=== PATIENT | female | born 1970 | race Caucasian/White ===

== ENCOUNTER 2018-06-30 09:38 | Outpatient (REF) | payer BC, SELFPAY ==
[2018-07-01 10:30] LABS: Campylobacter PCR SEE COMMENTS; Salmonella PCR SEE COMMENTS; Shiga Toxin PCR SEE COMMENTS; Shigella/Enteroinvasive Ecoli SEE COMMENTS
== END 2018-06-30 09:58 ==
LOC: NCHCN 09:38
PROVIDERS: PCP Internal Medicine; Visit Provider Nurse Practitioner Family
DX: R19.7 Diarrhea, unspecified (principal)
CPT/HCPCS: 87505

== ENCOUNTER 2018-07-04 12:58 | Outpatient (REF) | payer BC, SELFPAY ==
[2018-07-04 21:24] LABS: HCT 37.5 % (36.0-46.0); Mean Corpuscular Hemoglobin 26.7 pg (27.0-33.0); Mean Corpuscular Volume 83.3 fL (80-95); Mean Platelet Volume 9.8 fL (8.0-11.0); Platelet Count 347 x1000/uL (130-400); RBC Distribution Width 14.6 % (11.7-14.6)
[2018-07-04 21:48] LABS: Anion Gap 8.6 mmol/L (3-11); BUN 12 mg/dL (7-18); CO2 30.4 mmol/L (21.0-32.0); CREATININE 0.68 mg/dL (0.55-1.02); Calcium 8.9 mg/dL (8.5-10.1); Chloride 100 mmol/L (98-107); Glucose 85 mg/dL (70-100); Sodium 139 mmol/L (136-145); TSH (W/Ref FT4) 1.38 uIU/mL (0.358-3.74)
== END 2018-07-04 13:18 ==
LOC: LBN 12:58
PROVIDERS: PCP Internal Medicine; Visit Provider Nurse Practitioner Family
DX: L67.9 Hair color and hair shaft abnormality, unspecified (principal); R19.7 Diarrhea, unspecified
CPT/HCPCS: 80048; 85027; 84443

== ENCOUNTER 2018-07-08 13:24 | Outpatient (REF) | payer BC, SELFPAY ==
[2018-07-08 14:31] LABS: Potassium 3.9 mmol/L (3.5-5.1)
== END 2018-07-08 13:44 ==
LOC: NCHCN 13:24
PROVIDERS: PCP Internal Medicine; Visit Provider Nurse Practitioner Family
DX: E87.6 Hypokalemia (principal); M54.5 Low back pain
CPT/HCPCS: 84132; 87086

== ENCOUNTER 2019-02-15 11:20 | Outpatient (CLI) | payer BC, SELFPAY ==
[2019-02-15 12:37] LABS: HCT 34.9 % (36.0-46.0); HGB 11.1 g/dL (12.0-15.5); Mean Corp. HGB Concentration 31.8 g/dL (32.0-36.0); Mean Corpuscular Volume 88.1 fL (80-95); Mean Platelet Volume 8.9 fL (8.0-11.0); Platelet Count 465 x1000/uL (130-400); RBC 3.96 m/cumm (4.00-5.20); RBC Distribution Width 15.4 % (11.7-14.6); White Blood Cell Count 5.95 k/cumm (4.4-10.8)
[2019-02-15 13:05] LABS: TSH (W/Ref FT4) 1.29 uIU/mL (0.358-3.74)
== END 2019-02-15 11:40 ==
PROVIDERS: PCP Internal Medicine; Visit Provider Nurse Practitioner Women's Health
DX: N93.9 Abnormal uterine and vaginal bleeding, unspecified (principal)
CPT/HCPCS: 36415; 85027; 84443

== ENCOUNTER 2019-02-15 12:14 | Outpatient (REF) | payer BC, SELFPAY ==
--- NOTE | 2019-02-15 11:00 | ENDOMET_PTH ---
PATIENT: Margoth Shin LOC: [facility] U#:[id number] AGE/SX: 48/F ROOM: RE02/15/[address]: Monae Conner NP : 1970 BED: DIS: 02/15/2019 SPEC #: [id number] RECD: 02/15/19 12:50 STATUS: CHIKIS REQ #: [id number] ENEIDA: 02/15/19 11:[address]: Monae Conner NP DEPT: Surgical Specimen RECD BY: Saray Muller ENTERED: 02/15/19 12:51 SP TYPE: Endomet OTHR DR: Mauricio Grimes Tissues: 1 - ENDOMETRIUM BX/ANNABELLA Procedures: GROSS AND MICRO LEVEL 4 Comments: [id number]
== END 2019-02-15 12:34 ==
LOC: LBN 12:14
PROVIDERS: PCP Internal Medicine; Visit Provider Nurse Practitioner Women's Health
DX: N85.01 Benign endometrial hyperplasia (principal); N93.8 Other specified abnormal uterine and vaginal bleeding; N95.8 Other specified menopausal and perimenopausal disorders
CPT/HCPCS: 88305

== ENCOUNTER 2019-02-16 01:12 | Outpatient (CLI) | payer BC, SELFPAY ==
--- NOTE | 2019-02-16 08:04 | DI.US_ITS ---
SYMPTOM/DIAGNOSIS: AUB, N93.9 ABNORMAL UTERINE AND VAGINAL BLEEDING N85.2 HYPERTROPHY OF UTERUS PELVIC ULTRASOUND: 02/16 Pelvic ultrasound was performed transabdominally and transvaginally. Please see the accompanying data sheet for measurements of the pelvic structures. The uterus is unremarkable in appearance except for some small Nabothian cysts. Endometrial stripe is about 8 mm in thickness and appears fairly homogeneous. Right ovary has a normal follicular appearance. The left ovary contains a cystic mass with a couple septations. Question of nodular or wall thickening is raised in one quadrant of the cyst. No gross increased blood flow is seen. No free fluid identified in the cul de sac. Limited scanning of the kidneys is unremarkable. CONCLUSION: Indeterminate left ovarian predominantly cystic mass. Follow up ultrasound recommended in 4-6 weeks and if the findings do not resolve additional evaluation with pelvic MRI or biopsy would be recommended.
== END 2019-02-16 01:32 ==
PROVIDERS: PCP Internal Medicine; Visit Provider Nurse Practitioner Women's Health
DX: N85.2 Hypertrophy of uterus (principal); N93.9 Abnormal uterine and vaginal bleeding, unspecified; N83.292 Other ovarian cyst, left side
CPT/HCPCS: 76830; 76856

== ENCOUNTER 2019-02-22 09:28 | Outpatient (CLI) | payer BC, SELFPAY ==
[2019-02-22 10:31] LABS: Abs Immature Grans 0.01 k/cumm (0.0-0.09); Absolute Basophil Count 0.06 k/cumm (0.0-0.2); Absolute Eosinophil Count 0.08 k/cumm (0.0-0.7); Absolute Monocyte Count 0.47 k/cumm (0.11-0.7); Absolute Neutrophil Count 4.12 k/cumm (1.2-6.7); Eosinophils % 1.3; HCT 34.3 % (36.0-46.0); HGB 11.1 g/dL (12.0-15.5); Immature Grans % 0.2; Mean Corp. HGB Concentration 32.4 g/dL (32.0-36.0); Mean Corpuscular Hemoglobin 28.8 pg (27.0-33.0); Mean Corpuscular Volume 88.9 fL (80-95); Mean Platelet Volume 8.8 fL (8.0-11.0); Monocytes % 7.5; Platelet Count 348 x1000/uL (130-400); RBC 3.86 m/cumm (4.00-5.20); RBC Distribution Width 15.7 % (11.7-14.6); White Blood Cell Count 6.24 k/cumm (4.4-10.8)
== END 2019-02-22 09:48 ==
PROVIDERS: PCP Internal Medicine; Visit Provider Nurse Practitioner Women's Health
DX: D64.9 Anemia, unspecified (principal)
CPT/HCPCS: 36415; 85025

== ENCOUNTER 2019-03-27 00:43 | Outpatient (CLI) | payer BC, SELFPAY ==
--- NOTE | 2019-03-27 07:55 | DI.US_ITS ---
SYMPTOM/DIAGNOSIS: LT OVARIAN MASS, N83.202 PELVIC ULTRASOUND: Transabdominal and transvaginal exams were performed. Comparison is made with 02/16/19. The uterus measures 9 by 5.1 by 7 cm. The endometrial stripe measures 6 mm. in thickness. There is a question of a small posterior myometrial fibroid. The previously noted cystic septated lesion in the left ovary is no longer present on the current exam. Small follicles are noted on both ovaries. No free fluid or hydronephrosis is seen. IMPRESSION: Interval resolution of septated cyst. No significant new abnormalities are seen.
== END 2019-03-27 01:03 ==
PROVIDERS: PCP Internal Medicine; Visit Provider Nurse Practitioner Women's Health
DX: N83.292 Other ovarian cyst, left side (principal)
CPT/HCPCS: 76830; 76856

== ENCOUNTER 2019-04-27 08:40 | Outpatient (CLI) | payer BC, SELFPAY ==
[2019-04-27 09:38] LABS: HCT 41.8 % (36.0-46.0); HGB 13.9 g/dL (12.0-15.5); Mean Corp. HGB Concentration 33.3 g/dL (32.0-36.0); Mean Corpuscular Hemoglobin 28.6 pg (27.0-33.0); Mean Platelet Volume 8.9 fL (8.0-11.0); Platelet Count 351 x1000/uL (130-400); RBC 4.86 m/cumm (4.00-5.20); RBC Distribution Width 13.9 % (11.7-14.6); White Blood Cell Count 5.95 k/cumm (4.4-10.8)
== END 2019-04-27 09:00 ==
PROVIDERS: PCP Internal Medicine; Visit Provider Obstetrics & Gynecology Gynecology
DX: N92.6 Irregular menstruation, unspecified (principal); Z01.812 Encounter for preprocedural laboratory examination
CPT/HCPCS: 36415; 85027; 86850; 86900; 86901

== ENCOUNTER 2019-05-04 10:55 | Day surgery (SDC) | payer BC, SELFPAY ==
[2019-05-04 11:15] VITALS: BP 129/85; PULSE 78; RESP 16; TEMP 36.8; O2SAT 99
[2019-05-04] MEDS: Lactated Ringers 1,000 ML 125 ML IV (11:40)
[2019-05-04] MEDS: Bupivacaine 0.25% Pres-Free 30 ML VIAL (13:03)
[2019-05-04 13:34] VITALS: BP 119/67; PULSE 73; RESP 14; TEMP 36.4; O2SAT 100
[2019-05-04 13:39] VITALS: BP 123/77; PULSE 71; RESP 14; TEMP 36.4; O2SAT 100
[2019-05-04 13:44] VITALS: BP 129/81; PULSE 70; RESP 14; TEMP 36.4; O2SAT 100
--- NOTE | 2019-05-04 13:47 | ROE_ITS ---
Date of service: 05/04/19 Time of Service: 13:47 Operative Note Operative Note DATE OF PROCEDURE: 05/04/19 PRE-OP DIAGNOSIS: Abnormal uterine bleeding POST-OP DIAGNOSIS: same PROCEDURE: Hydrothermal endometrial ablation SURGEON: Marie Lorenzana ANESTHESIA: GETA (Laryngeal mask anesthesia) ESTIMATED BLOOD LOSS: 0 PATHOLOGY: none sent COMPLICATIONS: None Patient was transported to: same day Patient's condition: stable Indications: 48-year-old multiparous female with heavy bleeding beginning in January 2019 responsive to medical therapy. Patient is continued with irregular b leeding while taking continuous active OCPs. She declined definitive treatment in the form of an endometrial ablation Findings: Uterus sounded to 8 cm. Uterine vides thickened no polyps or intracavitary filling defects noted Procedure Description: Patient was taken to the operating room where she is p laced in the dorsal supine position and general laryngeal anesthesia provided. She was then placed in the dorsolithotomy position in yellowfin stirrups prepped and draped in the usual sterile fashion. A surgical timeout was performed. A bivalve speculum was placed in the vagina and the anterior lip of the cervix was infiltrated with quarter percent Marcaine and grasped with a single-tooth tenac ulum. Paracervical block was then performed using 5 cc of quarter percent Marcaine without epinephrine at the 4 and 8:00 interfaces. Uterus was then sounded to 8 cm and the cervix sequentially dilated to a maximum of 17 Mishra. The hysteroscope with the hydrothermal ablation cannula was introduced under direct visualization into the uterine cavity with normal saline as a distention medium. Cavity assessment was performed and the ablation device was positioned two thirds of the way into the uterine cavity with visualization of the uterine fundus. Once diagnostic hysteroscopy was completed the temperature of the circulating fluid was heated to 90 ?C and for 10 minutes the endometrial cavity was treated. Care was taken to assure that the hydrothermal device was not touching the vaginal vides. No leakage from the cervical loss was observed. At the completion of the procedure the fluid circulating within the cavity was returned to room temperature and diagnostic hysteroscopy showed a complete ablation of the uterine fundus and to the lower uterine segment. 2 spots approximately 1 cm each were noted to be untreated at the uterine cornua bilaterally. Instruments were removed from the patient's vagina at the tenaculum site was hemostatic she is placed in the dorsal supine position awakened extubated and transported to recovery area in stable condition all sponge lap needle counts are correct x2.
[2019-05-04 14:00] VITALS: BP 133/85; PULSE 75; RESP 17; TEMP 36.7; O2SAT 100
[2019-05-04 14:44] VITALS: BP 143/83; PULSE 67; RESP 16; TEMP 36.4; O2SAT 100
[2019-05-04] MEDS: oxyCODONE 5 mg/Acetaminophen 325 mg TAB PO (14:50)
== END 2019-05-04 16:01 | disposition home or self-care (01) ==
PROVIDERS: PCP Internal Medicine; Visit Provider Obstetrics & Gynecology Gynecology
PROC: (CPT 58353; principal; 2019-05-04 13:00)
DX: N93.8 Other specified abnormal uterine and vaginal bleeding (principal)
CPT/HCPCS: 58563; J1100; J1885; J2405

== ENCOUNTER 2022-02-13 19:11 | Emergency (ER) | payer BC, SELFPAY ==
[2022-02-13 19:28] VITALS: BP 148/91; PULSE 98; RESP 14; TEMP 37.3; O2SAT 98
--- NOTE | 2022-02-13 20:03 | ED.GENADUL_ITS ---
Discharge Plan Disposition Patient Disposition: HOME Condition: Stable Discharge Details Clinical Impression: Hemorrhoids, Hemorrhoids, thrombosed Primary Care Provider: Mauricio Grimes ED Provider: Deisy Johns Home Meds and New Rx's Prescriptions: New oxycodone 5 mg tablet 5 mg PO Q4H PRN (Reason: pain) Qty: 10 0RF hydrocortisone [Anusol-HC] 2.5 % cream with perineal applicator 1 applic ID QD-BID PRN (Reason: hemorrhoids) Qty: 30 0RF No Action ibuprofen [Advil] 200 mg tablet 200 mg PO Q6H PRN docusate sodium [Colace] 100 mg capsule 100 mg PO DAILY dibucaine 1 % Ointment 1 applic ID DIRECTED PRN Advil Dual Action 125-250 mg Tablet 1 tab PO DIRECTED Discharge Instructions Instructions: Oxycodone, Rapid Release (By mouth), Dibucaine (On the skin), H ydrocortisone (Into the rectum), Hemorrhoids (ED), Thrombosed Hemorrhoid (ED) Additional Instructions: You have a number of large hemorrhoids that appear to be external. The most painful, and largest, is thrombosed. Surgical physician feels this will improve over the next 24-48hours. Please continue with your Tucks pad, ice, sitz baths. Please continue with increased water intake, diet to keep stool soft. You may continue with Tylenol and/or Ibuprofen as needed for discofort. You may augment this with the oxycodone as prescribed. Please do not drive while taking this medication and only take as prescribed. This can cause constipation, please take collace or other stool soften while on this. Should you develop any signs of constipation beginning take milk of magnesia or magnesium citrate (these are available over the counter). You may use the Dibucaine topically for pain 3-4 times per day. Please rotate this with the Anusol which you can apply 2-4 times daily. I would like for you to see general surgery as soon as possible, I have asked our care management team to assist with prompt follow up. If you develop fevers/chills, increased pain or other new/worsening symptoms please seek care urgently once again. Referrals: Liliana Kruse MD [ [facility] STAFF PHYSICIAN] - Mauricio Grimes MD [Primary Care Provider] - Discharge Data Discharge Date/Time-TO BE ENTERED AT DEPARTURE: 02/13/22 22:12 Medical Decision Making Patient is a pleasant 51 year old female, accompanied by , with c/c of hemorrhoids. She reports that she has had long history of hemorrhoids which she typcially is able to control with diet. Has discussed surgical excision but states that this was several years ago. She reports that this past week has been very off from her typical schedule/diett and she developed significant hemorrhoids that are nott responding tto her typical managementt of ice, soaks, hydrocortisone. She is having difficulty walking, sitting, sleeping. Denies fevers/chills. Has had normal stools without constipation. No vaginal discharge or dysurea. On exam, patient appears very uncomforttable. She is laying on her side off of her buttock. Abdomen is benign. She has large cluster of what appear to be external hemorrhoids. However, given the pain level and severity, it is difficult to identify the starting point for many of these. All together, the cluster is about the size of a tennis ball. She has one that is clearly thrombosed about the size of a golf ball with the surrounding ones appearing pink and much more soft/nontender. Exam is limited secondary to pain. No involvement of the attached skin. Concerned with thrombosed hemorrhoids, will reach out to surgery. The size and others surrounding the single thrombosed hemorrhoid has me concerned to open this, will seek their guidance first. Consulted with Dr. Rodriguez. She recommended that we could use ice or anusol suppositories. Advised that it should start to reabsorb in the next 24-48hrs. We discussed Nitro suppositories but advised that with the thrombosis less likely to be successful. Advised it should abosrb after the acute period. Discussed this with the patient. She is clearly so uncomfortable that I did offer oral narcotics. We discussed that this could increase her risk of cons tipation which would further precipitate her hemorrhoids. Advised that if we do so, we need to start a concomitant stool softener which she does not typically take. She has used Colace in the past with good results. Encouraged hydration. Encouraged that she continue with her ice and sitz baths. Encouraged that she use non-narcotic options first such as tylenol and/or ibuprofen as she has been doing. Will refill her hydrocortisone and also provide numbing cream to help with acute period of discomfort. I have asked our care management team to ensure f/u with general surgery as soon as possible, hopefully Wednesday, for consultation and intervention if needed. Return precautions were discussed. All of her quesitons and concerns were addressed, she is in agreement with this plan. HPI General Date/Time Provider Initiated Documentation: 02/13/22 20:02 . Limitations to Documentation: no limitations . Information obtained by: patient, family () and RN notes reviewed . History of Present Illness 51 year old F presents to the emergency department with the chief complaint of hemorrhoids, described as severe and similar to prior episodes, with intensity rated at 10. Quality is described as burning, and is localized to the buttocks. Patient reports no radiation. Patient started experiencing this day(s) and it has been constant. Immobilization improves symptom(s), Movement worsens symptoms . Patient notes no other symptoms.. Patient did receive the following treatments prior to arrival, other (several topical options) Related Data Home Medications Medication Instructions Recorded Confirmed hydrocortisone 2.5 % topical cream 1 applic ID QD-BID PRN hemorrhoids 02/13/22 02/16/22 with perineal applicator #30 grams (Anusol-HC) oxycodone 5 mg tablet 5 mg PO Q4H PRN pain #10 tabs 02/13/22 02/16/22 dibucaine 1 % rectal ointment 1 applic ID DIRECTED PRN 02/16/22 02/16/22 docusate sodium 100 mg capsule 100 mg PO DAILY 02/16/22 02/16/22 (Colace) ibuprofen 125 mg-acetaminophen 250 1 tab PO DIRECTED 02/16/22 02/16/22 mg tablet (Advil Dual Action) ibuprofen 200 mg tablet (Advil) 200 mg PO Q6H PRN 02/16/22 02/16/22 Previous Rx's Medication Instructions Recorded hydrocortisone 2.5 % topical cream 1 applic ID QD-BID PRN hemorrhoids 02/13/22 with perineal applicator #30 grams (Anusol-HC) oxycodone 5 mg tablet 5 mg PO Q4H PRN pain #10 tabs 02/13/22 Allergies Allergy/AdvReac Type Severity Reaction Status Date / Time carisoprodol [From Soma] Allergy Intermediate Hives Unverified 02/16/22 14:31 nickel Allergy HIVES Verified 02/16/22 14:31 General Stated Complaint: GenMedical MATILDE: 3 Review of Systems Constitutional Constitutional: Reports as per HPI, Denies chills and Denies fever(s) Gastrointestinal Gastrointestinal: Reports as per HPI Musculoskeletal Musculoskeletal: Reports as per HPI and Denies back pain Integumentary/Breasts Skin/Breast: Reports as per HPI Neurologic Neurologic: Reports as per HPI PFSH All Active Problems Hemorrhoids (Acute) Hemorrhoids, thrombosed (Acute) S/P endometrial ablation (Acute ~04/2019) Abnormal uterine bleeding (AUB) (Acute) Onset 01/2019. Initial treatment with tranexamic acid and norethindrone plus /minus effective. Normal endometrial biopsy normal pelvic ultrasound. 05/04/19 Endometrial ablation. Family history of breast cancer (Acute 06/10/17) sister with premenopausal breast CA. Unknown BRCA testing. Medical History Prolapsed hemorrhoids occurs with defecation. occassional bleeding. Family History Father Heart disease Heart fibrillation, hypertension, diabetes. Sister No problems noted. Social History Smoking/Tobacco Use Status: Never Smoking risk assessment performed?: Yes Alcohol Intake: current Alcohol Intake frequency: a few times a month Alcohol type: wine Drug use: Never Substance use type: does not use Current gender identity: female Do you feel safe at home: Yes Do you feel safe in your relationship?: Yes Female Reproductive History Menstrual control method: none History History 3 Para 2 Hx # Term Pregnancies Multiple births Hx # Pregnancies Ectopic pregnancies AB induced Hx Number of Living Children AB spontaneous Exam Const General: cooperative, healthy appearing, uncomfortable, no acute distress and well developed Nutritional Appearance: average body habitus and well nourished Orientation: alert and awake HENMT Head: normal to inspection Mouth: moist mucous membranes Resp Effort & Inspection: normal respiratory effort, able to speak in complete sentences and no respiratory distress Cardio Rate: regular rate Rhythm: regular rhythm GI Inspection: normal to inspection Palpation: soft, no guarding, not rigid and nontender Percussion: normal to percussion Auscultation: normal bowel sounds Rectal Exam - female: hemorrhoids and tenderness (maximal over thrombosed hemorrhoid) Back/Spine/Pelvis Back: no CVA tenderness Skin General skin exam: other (hemorrhoids, one is thrombosed) Trauma: no lacerations or abrasions Neuro General: patient alert and patient awake Cognition: normal cognition Speech: speech normal Gait: normal gait Psych Appearance: grossly normal and well kempt Mental Status: mental status grossly normal Speech and Movement: speech and movement normal Course Vital Signs Vital signs: Vital Signs Temperature 37.3 C 02/13/22 19:28 Pulse 98 H 02/13/22 19:28 Respiratory Rate 14 02/13/22 19:28 Blood Pressure 148/91 H 02/13/22 19:28 Pulse Oximetry 98 02/13/22 19:28 Temperature 37.3 C 02/13/22 19:28 Temperature Source Temporal Artery Scan 02/13/22 19:28 Pulse 98 H 02/13/22 19:28 Respiratory Rate 14 02/13/22 19:28 Respiratory Effort Non-Labored 02/13/22 19:33 Respiratory Depth Normal 02/13/22 19:33 Respiratory Pattern Normal 02/13/22 19:33 Blood Pressure 148/91 H 02/13/22 19:28 Blood Pressure Position Supine 02/13/22 19:28 Pulse Oximetry 98 02/13/22 19:28 Oxygen Delivery Method Room Air 02/13/22 19:28 Oxygen Flow Rate 0 02/13/22 19:28 Pain Level 8 02/13/22 19:28
[2022-02-13] MEDS: oxyCODONE 5 MG TAB PO (21:35)
[2022-02-13] MEDS: Docusate Sodium 100 MG CAP PO (21:35)
[2022-02-13] MEDS: Hydrocortisone 25 MG SUPP 50 MG PR (22:10)
--- NOTE | 2022-02-16 09:37 | PDOC.ERCMACT ---
- If Service Date Differs Date of service: 02/16/22 Time of Service: 09:37 Care Management Activity Note Margoth is seen in the ED on 02/13/22 for thrombosed hemorrhoids. TANIA receives a call from Margoth over the weekend who advises that the pain is excruciating and despite following instructions received in the ED, the pain has not improved. TANIA contacts the [facility] office Wednesday and obtains an urgent appointment for Margoth with OCTAVIO [place], at 11:00 am (02/16).
== END 2022-02-13 22:12 | disposition home or self-care (01) ==
PROVIDERS: Emergency Provider Physician Assistant; PCP Internal Medicine
DX: K64.5 Perianal venous thrombosis (principal)
CPT/HCPCS: 99283; 99284

== ENCOUNTER 2022-02-16 13:08 | Outpatient (CLI) | payer BC, SELFPAY ==
[2022-02-16 14:31] LABS: Source Nasal/Nares
[2022-02-16 22:41] LABS: COVID-19 PCR Negative (Negative)
== END 2022-02-16 13:09 | disposition home or self-care (01) ==
LOC: LBO 13:10
PROVIDERS: PCP Internal Medicine; Visit Provider Surgery
DX: Z20.822 Contact with and (suspected) exposure to COVID-19 (principal); Z01.818 Encounter for other preprocedural examination
CPT/HCPCS: 87635

== ENCOUNTER 2022-02-17 06:09 | Day surgery (SDC) | payer BC, SELFPAY ==
--- NOTE | 2022-02-16 14:58 | W.PM.DSUDISC ---
Discharge Plan Disposition Patient Disposition: HOME Condition: Good Discharge Details Reason For Visit: Thrombosed hemorrhoids x3 Attending Provider: Geena Shipley Primary Care Provider: Mauricio Grimes Home Meds and New Rx's Prescriptions: New tramadol 50 mg tablet 50 mg PO Q4H PRN (Reason: pain (scale score 7-10)) Qty: 14 0RF dibucaine 1 % ointment 1 applic HI QID PRNQty: 56 6RF cyclobenzaprine 5 mg tablet 5 mg PO TID PRNQty: 30 6RF Continued ibuprofen [Advil] 200 mg tablet 200 mg PO Q6H PRN docusate sodium [Colace] 100 mg capsule 100 mg PO DAILY hydrocortisone [Anusol-HC] 2.5 % cream with perineal applicator 1 applic HI QD-BID PRN (Reason: hemorrhoids) Qty: 30 0RF dibucaine 1 % Ointment 1 applic HI DIRECTED PRN Advil Dual Action 125-250 mg Tablet 1 tab PO DIRECTED acetaminophen 500 mg Tablet 1,000 mg PO Q6H PRN Discontinued oxycodone 5 mg tablet 5 mg PO Q4H PRN (Reason: pain) Qty: 10 0RF Discharge Instructions Additional Instructions: Home Care Instructions after Rectal Surgery Pain control:? Ibuprofen 600mg 6hrs (take w/ food. Do not take on an empty stomach) and Tylenol 1000mg by mouth (ibuprofen 400-600mg) every 8 hours.? Do not take if you have ulcers or sensitivity to aspirin.? Do not take Tylenol if you have hepatitis or liver failure. Alternate the Tylenol and ibuprofen.? Take pain meds continuously for the first 72hrs.? After 72hrs, you can take as needed if you are having pain.? Use the tramadol for pain >7. It takes oral pain meds an hour to take affect. You also have the topical dibucaine for pain as well. How to prevent constipation: The first bowel movement after surgery will be painful. Do not let yourself get constipated. Stay on a stool softener for the first two weeks after surgery. ?It is recommended that you use a fiber supplement (Metamucil, Citrucel) daily (1 tablespoon in 8 oz of water). If you do not have a bowel movement daily, use Milk of Magnesia or Miralax. You may have bleeding or drainage after rectal surgery; especially when you move your bowels. Use a sanitary napkin to collect the discharge. If you are passing large clots or having to change the pad more than every 4 hours, call the clinic or go to the ER. You may experience spasms in the rectal muscles. This is normal after surgery and last for about two weeks. They can become more intense with bowel movements. The best remedy is to soak in a bathtub of plain warm water- no Epsom salts, essential oil or soap.? It takes about 10 minutes for the the spasm to stop.? You may want to do this after BM as well. You can use also use the cyclobezaprine for spasms. It is ok to shower. Avoid soap on the surgical area. Use a pillow to sit on. Follow a mild bland diet. Avoid alcohol, spicy food, citrus, and tomatoes. Avoid strenuous activity (running, jogging, and power walking, swimming, weight lifting) for 4-6 weeks. No lifting over 20 pounds for 2 weeks. F/u in 2 wks time Stand Alone Forms: Anesthesia Discharge Inst., Xavier Saleh (DSU) Activity:: see above Diet:: As Tolerated Discharge Orders Discharge Orders: Discharge Order (Routine); Ordered 02/16/22 Ordered By: Geena Shipley
--- NOTE | 2022-02-16 15:08 | ROE_ITS ---
Date of service: 02/18/22 Time of Service: 08:30 Operative Note Operative Note DATE OF PROCEDURE: 02/17/22 PRE-OP DIAGNOSIS: Thrombosed hemorrhoids x3 columns mixed I/E POST-OP DIAGNOSIS: same (thrombosised and necrotic ) PROCEDURE: I/E open hemorrhoidectomy SURGEON: Geena Shipley ANESTHESIA TYPE: Local By Surgeon and General LMA/ETT Refer to Anesthesia Record ESTIMATED BLOOD LOSS: 10 PATHOLOGY: none sent COMPLICATIONS: None Patient was transported to: same day Patient's condition: stable Procedure Description: Pt is here today for excision of throbosed/necrotic I/E hemorrhoids. Informed consent is obtained explaining risks and benefits of the procedure, including but not limited to: bleeding, infection, penumonia.,blood clots,damage to sphincters resulting in stenosis or loss of control, anesthesia, recurrence, and other unforetold complications. pt is brought to the operative suite. Anestheis is administered per the dept of anethesia. She is than placed in the prone possition w/ all bony surfaces padded. The anal/rectal region is prepped and drapped in the usual sterile fashion using a Betadine scrub solution. Timeout and fire safety Are performed. All 3 hemorrhoid clusters are thrombosed necrotic and inflamed. They are not grossly infected. She did receive preop Flagyl IV. Procedure: A Verdugo anal retractor was inserted to aid in visualization of the hemorrhoid to be operated upon. the hemorrhoid was grasped at the mucocuteneous junction with an Allis forceps and retracted. A stay suture of 4- 0 Prolene was placed distal to the end of the incision. The skin was incised at the base of the hemorrhoid with a scissors as a V-shape incision. The incision was extended into the mucosa either side of the hemorrhoid, raising it off the muscles of the internal sphincter. The dissection is continued just beyond the dentate line. All clot was removed prior to closing the defect. The Defect was then closed with 4-0 Vicryl in a running fashion. This was repeated for all 3 columns. The rectum was irrigated. There is no bleeding noted. Dibucaine impregnated Gelfoam was inserted into the rectum and sterile dressing is applied. Patient tolerated procedure well without complication and transferred to recovery room in stable condition.
[2022-02-17] VITALS (7 sets, daily range): BP systolic 108–150; BP diastolic 79–108; PULSE 77–97; RESP 11–20; TEMP 36–36.5; O2SAT 96–100; BMI 28.8
[2022-02-17] MEDS: Gabapentin 300 MG CAP 600 MG PO (06:34)
[2022-02-17] MEDS: Acetaminophen 500 MG TAB 1000 MG PO (06:35)
[2022-02-17] MEDS: metroNIDAZOLE 500 MG/100 ML BAG 100 MG IVPB (06:45)
[2022-02-17] MEDS: Lactated Ringers 1,000 ML 80 ML IV (06:50)
[2022-02-17] MEDS: Normal Saline Flush 10 ML SYR IV (06:51)
--- NOTE | 2022-02-17 07:10 | ANES.PREOP_ITS ---
General Info Date of Service Date Performed: 02/17/22 Height: 5 ft 4 in Weight: 76.2 kg Body Mass Index (BMI): 28.8 Surgical Procedure: Operation Date: 02/17/22 07:40 Proposed Procedure Side Surgeon p Exam Under Anesthesia Geena Shipley DO s Hemorrhoidectomy Geena Shipley DO Meds Allergies and Home Medications Allergies Allergy/AdvReac Type Severity Reaction Status Date / Time carisoprodol [From Soma] Allergy Intermediate Hives Unverified 02/17/22 06:56 nickel Allergy HIVES Verified 02/17/22 06:56 Home Medication Medication Instructions Recorded hydrocortisone 2.5 % topical cream 1 applic SD QD-BID PRN hemorrhoids 02/13/22 with perineal applicator #30 grams (Anusol-HC) oxycodone 5 mg tablet 5 mg PO Q4H PRN pain #10 tabs 02/13/22 dibucaine 1 % rectal ointment 1 applic SD DIRECTED PRN 02/16/22 docusate sodium 100 mg capsule 100 mg PO DAILY 02/16/22 (Colace) ibuprofen 125 mg-acetaminophen 250 1 tab PO DIRECTED 02/16/22 mg tablet (Advil Dual Action) ibuprofen 200 mg tablet (Advil) 200 mg PO Q6H PRN 02/16/22 acetaminophen 500 mg tablet 1,000 mg PO Q6H PRN 02/17/22 Current Visit Medications: Current Medications Generic Name Dose Route Start Last Admin Trade Name Freq PRN Reason Stop Dose Admin Acetaminophen 1,000 mg 02/17/22 06:00 02/17/22 06:35 Acetaminophen 500 Mg Tab PO 03/18/22 23:59 1,000 mg PREOP JEREMY Administration Dibucaine 0 gm 02/17/22 06:00 Dibucaine 1% 28 Gm Tube SD DIRECTED JEREMY Gabapentin 600 mg 02/17/22 06:00 02/17/22 06:34 Gabapentin 300 Mg Cap PO 03/18/22 23:59 600 mg PREOP JEREMY Administration Ringer's Solution 1,000 mls @ 80 mls/hr 02/17/22 06:00 02/17/22 06:50 IV 03/18/22 23:59 80 mls/hr INFUSION JEREMY Administration Metronidazole 500 mg in 100 mls @ 100 mls/hr 02/17/22 06:00 Flagyl IVPB 02/17/22 23:59 PREOP JEREMY Ondansetron HCl 4 mg/ Sodium 52 mls @ 200 mls/hr 02/16/22 14:58 Chloride IVPB Q6H PRN PRN IV Miscellaneous Supplies 1 each 02/17/22 06:00 Iv Access IV 03/18/22 23:59 DIRECTED JEREMY Morphine Sulfate 2 mg 02/16/22 14:58 Morphine 4 Mg/Ml Syr IVP Q1H PRN PRN Sodium Chloride 0 ml 02/17/22 06:00 02/17/22 06:51 Normal Saline Flush 10 Ml Syr IV 03/18/22 23:59 10 ml PRN PRN Administration Sodium Chloride 0 ml 02/17/22 06:00 Normal Saline 10 Ml Vial IJ 03/18/22 23:59 DIRECTED PRN Sterile Water 0 ml 02/17/22 06:00 Water,Injection,Sterile 10 Ml Vial IJ 03/18/22 23:59 DIRECTED PRN Tramadol HCl 50 mg 02/16/22 14:58 Tramadol 50 Mg Tab PO Q6H PRN PRN Pain PFSH Active Problems Active Problems: Problem Status Onset Code Hemorrhoids K64.9 Hemorrhoids, thrombosed K64.5 S/P endometrial ablation ~04/2019 Z98.890 Abnormal uterine bleeding (AUB) N93.9 Family history of breast cancer 06/10/17 Z80.3 Medical History Medical History Prolapsed hemorrhoids occurs with defecation. occassional bleeding. Tobacco Smoking/Tobacco Use Status: Never Alcohol Alcohol Intake: current Alcohol intake frequency: a few times a month Alcohol type: wine Substance Use Substance use: Never Substance use type: does not use Prental History History 3 Para 2 Hx # Term Pregnancies Multiple births Hx # Pregnancies Ectopic pregnancies AB induced Hx Number of Living Children AB spontaneous Vital Signs and Lab Results Vital Signs Most Recent Vital Signs in EMR: Most Recent Vital Signs Temp Pulse Resp BP Pulse Ox 36.5 C 82 18 132/108 H 98 02/17/22 06:18 02/17/22 06:18 02/17/22 06:18 02/17/22 06:18 02/17/22 06:18 Point of Care Results Point of Care Results: POC- Test(urine) Negative 02/17/22 06:57 Lab Results Blood Type / Crossmatch: No Data to Display Complete Blood Count: No Data to Display Complete Metabolic Panel: No Data to Display Liver Function Panel: No Data to Display Coagulation Panel: No Data to Display Cardiac Panel: No Data to Display Arterial Blood Gas: 2 No Data to Display Venous Blood Gas: No Data to Display Pancreas Panel: No Data to Display Thyroid Panel: No Data to Display Infectious Disease: Coronavirus (COVID-19)(PCR) Negative (Negative) 02/16/22 12:05 Coronavirus 2019 Source Nasal/Nares 02/16/22 12:05 Blood Cultures: No Data to Display Toxicology Panel: No Data to Display Panel: No Data to Display Anesthesia Assessment and Plan Anesthesia History Personal History: No History of Anesthesia Complications Family History: No Family History of Anesthesia Complications Exercise Tolerance Exercise Tolerance: Metabolic Equivalents>4 Pertinent Negatives Pertinent Negatives: No Symptoms of GERD, No Major Cardiovascular Symptoms or Complaints and No Major Pulmonary Symptoms or Complaints Cardiac & Pulmonary Exam Cardiac Exam: Normal S1/S2 Heart Sounds Pulmonary Exam: Clear Bilateral Breath Sounds Implantable Cardiac Device Does patient have a Pacemaker or an ICD?: No Airway Exam Known Difficult Airway: No Mallampati Class: 1 Mouth Opening: Normal (> 3cm) Thyromental Distance: Greater than 3 cm Neck Range of Motion: Full ROM Neck Circumference: Normal Teeth Condition: Normal Dentition ASA Classification ASA Score: ASA 2 Emergency Case?: No NPO Status NPO Status: NPO Clears >2 hours, Solids >8 hours Status Status: Negative HCG Anesthesia Plan Resuscitation Status: Full Code Anesthesia Technique: General Anesthesia Airway Planned: Endotracheal Tube Monitors Used: Standard Monitors Preoperative Comments:: Prone positioning
[2022-02-17] MEDS: Bupivacaine 0.5% Pres-Free W/EPI 10 ML VIAL (08:21)
[2022-02-17] MEDS: Gelatin SPONGE 12-7 MM PKT 1 EACH TP (08:39)
[2022-02-17] MEDS: Dibucaine 1% 28 GM TUBE PR (08:48)
--- NOTE | 2022-02-17 09:54 | W.ANESPOSTOP ---
Postoperative Evaluation Date, Time and Location Date Performed: 02/17/22 Time Performed: 09:55 Patient Location: Day Surgery Unit Vital Signs Most Recent Imported Vital Signs: Most Recent Vital Signs Temp Pulse Resp BP Pulse Ox 36.4 C L 88 20 138/83 97 02/17/22 09:43 02/17/22 09:43 02/17/22 09:43 02/17/22 09:43 02/17/22 09:43 Pain Score Most Recent Pain Score: Most Recent Pain Score Pain Level 0 02/17/22 09:43 Assessment Mental Status: Awake (Alert & Oriented to Patient Baseline) Airway and Respiratory Function: Patent airway with normal (patient baseline) respiratory exam Cardiovascular Function: Hemodynamically Stable Hydration Status: Adequately Hydrated Nausea & Vomiting: No Nausea or Vomiting Pain: Pt. Denies Any Pain Peripheral Nerve Block: Patient did not receive a nerve block
== END 2022-02-17 11:32 | disposition home or self-care (01) ==
PROVIDERS: PCP Internal Medicine; Visit Provider Surgery
PROC: (CPT 46260; principal; 2022-02-17 07:30)
PROC: (CPT 46260; 2022-02-17 07:30)
DX: K64.5 Perianal venous thrombosis (principal); K64.8 Other hemorrhoids
CPT/HCPCS: 46260; 81025; J1100; J1885; J2250; J2310; J2405

== ENCOUNTER 2025-08-21 10:27 | Outpatient (REF) | payer BC, SELFPAY ==
[2025-08-21 15:14] LABS: HCT 43.1 % (36.0-46.0); HGB 14.3 g/dL (11.2-15.7); MCH 28.7 pg (27.0-33.0); MCHC 33.2 % (32.0-36.0); MCV 87 fL (80-95); MPV 9.5 fL (8.0-11.0); Platelet Count 349 10^3/uL (130-400); RBC 4.98 10^6/uL (3.93-5.22); RDW 13.3 % (11.7-14.6); RDW-SD 41.4 fL; WBC 6.10 10^3/uL (4.4-10.8)
[2025-08-21 15:44] LABS: Hemoglobin A1C 5.3 % (<5.7)
[2025-08-21 15:52] LABS: Iron 57 ug/dL (50-170); Total Iron Binding Capacity 314 ug/dL (250-425); Transferrin Sat 18 % (15-50)
[2025-08-21 16:01] LABS: ALT 37 U/L (10-49); AST 30 U/L (<34); Albumin 4.2 g/dL (3.2-5.0); Alkaline Phosphatase 104 U/L (46-116); Anion Gap 7.2 mmol/L (3-11); BUN 17 mg/dL (9-23); Bilirubin, Total 0.4 mg/dL (0.2-1.2); CO2 26.8 mmol/L (20.0-31.0); Calcium 9.0 mg/dL (8.3-10.6); Chloride 109 mmol/L (98-107); Cholesterol 326 mg/dL (<200); Ferritin 71 ng/mL (7-271); Glucose 106 mg/dL (74-106); HDL Cholesterol 60 mg/dL (>or=50); Potassium 4.2 mmol/L (3.5-5.1); Sodium 143 mmol/L (136-145); TSH (W/Ref FT4) 1.05 uIU/mL (0.55-4.78); Total Protein 7.2 g/dL (5.7-8.2); Vitamin D 25 Total 28 ng/mL (30-100)
== END 2025-08-21 10:28 | disposition home or self-care (01) ==
LOC: NCHCN 10:27
PROVIDERS: PCP Internal Medicine; Visit Provider Nurse Practitioner Family
DX: Z78.0 Asymptomatic menopausal state (principal); Z00.00 Encounter for general adult medical examination without abnormal findings; R53.82 Chronic fatigue, unspecified
CPT/HCPCS: 80053; 80061; 82306; 85027; 82728; 83036; 83540; 83550; 84443